=== PATIENT | male | born 1975 | race Caucasian/White ===

== ENCOUNTER 2020-08-09 18:48 | Emergency (ER) | payer MEDICARE ==
[~2020-08-09] VITALS: Ht 180.3 cm; Wt 112.6 kg
[2020-08-09 20:10] VITALS: BP 152/101
[2020-08-09] MEDS ORDERED: IV NORMAL SALINE 1000ML BAG 1,000 ML IV ONE (21:15)
[2020-08-09] MEDS ORDERED: ACETAMINOPHEN 500 MG TABLET PO ONE (21:15)
[2020-08-09 21:23] LABS: BILIRUBIN,URINE NEGATIVE (NEG); CLARITY,URINE CLEAR; COLOR,URINE YELLOW; NITRITE,URINE NEGATIVE (NEG); PH,URINE 5.5 (<5.0-8.0); PROTEIN,URINE NEGATIVE (NEG-TRACE)
[2020-08-09 21:35] LABS: SQUAMOUS EPITHELIAL CELL,UR FEW /LPF
[2020-08-09 21:36] LABS: BACTERIA,URINE 0 /HPF (0-FEW); RBC,URINE 0 /HPF (0-2)
--- NOTE | 2020-08-09 21:50 | PHYS DOC ---
Past Medical History Past Medical History: Anxiety, Bipolar, Cancer, GERD, Hypertension, Other Additional Past Medical Histor: congenital heart defect, "leaky" heart valve, SKIN CA (MATTHEW WELDON PROTECTIVE SIGNAL OPERATOR) Past Surgical History: Other Additional Past Surgical Histo: SKIN CA REMOVAL ABOVE LEFT EAR (MATTHEW WELDON PROTECTIVE SIGNAL OPERATOR) Smoking Status: Current Some Day Smoker Alcohol Use: Rarely Drug Use: None (MATTHEW WELDON PROTECTIVE SIGNAL OPERATOR) General Adult EDM: Chief Complaint: FEVER HPI: HPI: Patient is a 45 year old male who presents with 2 days of headache, fatigue, chills, fever and loss of taste. Patient states that he is very anxious and worried and he has not taken his night lisinopril and that is why his blood pressure is high. He states every time the blood pressure machine goes off he gets very anxious. He denies recent travel or being in groups but does live with other people in the house but states that they do not have any symptoms. He rates his headache at a 5 out of 10. He states he also has a lack of appetite. Patient's temperature is 102.4 in the ED. Patient denies shortness of breath, chest pain, dizziness, syncope, vision changes, numbness or tingling, abdominal pain, nausea, vomiting, diarrhea, constipation, focal weakness. Patient has a history of anxiety, bipolar, GERD, congenital leaky heart valve, skin cancer, hypertension. (MATTHEW WELDON PROTECTIVE SIGNAL OPERATOR) Review of Systems: Review of Systems: Constitutional: Positive for fever or chills. Positive for fatigue. [] Eyes: Denies change in visual acuity. [] HENT: Denies nasal congestion or sore throat. Positive for loss of taste. [] Respiratory: Denies cough or shortness of breath. [] Cardiovascular: Denies chest pain or edema. [] GI: Denies abdominal pain, nausea, vomiting, bloody stools or diarrhea. Positive for lack of appetite. [] : Denies dysuria. [] Musculoskeletal: Denies back pain or joint pain. [] Integument: Denies rash. [] Neurologic: Positive for headache, denies focal weakness or sensory changes. [] Endocrine: Denies polyuria or polydipsia. [] Lymphatic: Denies swollen glands. [] Psychiatric: Denies depression. Positive for anxiety. [] (MATTHEW WELDON APRN) Heart Score: Risk Factors: Risk Factors: DM, Current or recent (<one month) smoker, HTN, HLP, family history of CAD, obesity. Risk Scores: Score 0 - 3: 2.5% MACE over next 6 weeks - Discharge Home Score 4 - 6: 20.3% MACE over next 6 weeks - Admit for Clinical Observation Score 7 - 10: 72.7% MACE over next 6 weeks - Early Invasive Strategies (MATTHEW WELDON APRN) Current Medications: Current Medications Medications (Trade) Dose Ordered Sig/Errol Start Time Stop Time Status Last Admin Dose Admin Acetaminophen (Tylenol) 1,000 mg 1X ONCE 08/09/20 21:15 08/09/20 21:16 DC Sodium Chloride 1,000 ml @ 1,000 mls/hr 1X ONCE 08/09/20 21:15 08/09/20 22:14 (MATTHEW WELDON APRN) Allergies: Allergies: Allergies Coded Allergies Type Severity Reaction Last Updated Verified No Known Drug Allergies 02/03/14 No (MATTHEW WELDON APRN) Physical Exam: PE: Constitutional: Well developed, well nourished, no acute distress, non-toxic appearance. Febrile. [] HENT: Normocephalic, atraumatic, bilateral external ears normal, oropharynx moist, no oral exudates, nose normal. [] Eyes: PERRLA, EOMI, conjunctiva normal, no discharge. [] Neck: Normal range of motion, no tenderness, supple, no stridor. [] Cardiovascular:Heart rate regular rhythm, no murmur [] Lungs & Thorax: Bilateral breath sounds clear to auscultation [] Abdomen: Bowel sounds normal, soft, no tenderness, no masses, no pulsatile masses. [] Skin: Warm, dry, no erythema, no rash. [] Back: No tenderness, no CVA tenderness. [] Extremities: No tenderness, no cyanosis, no clubbing, ROM intact, no edema. [] Neurologic: Alert and oriented X 3, normal motor function, normal sensory function, no focal deficits noted. [] Psychologic: Affect normal, judgement normal, mood normal. [] (MATTHEW WELDON APRN) Current Patient Data: Labs: Laboratory Tests Test 08/09/20 20:05 Urine Collection Type Unknown Urine Color Yellow Urine Clarity Clear Urine pH 5.5 (<5.0-8.0) Urine Specific Risco 1.025 (1.000-1.030) Urine Protein Negative mg/dL (NEG-TRACE) Urine Glucose (UA) Negative mg/dL (NEG) Urine Ketones (Stick) Trace mg/dL (NEG) Urine Blood Negative (NEG) Urine Nitrite Negative (NEG) Urine Bilirubin Negative (NEG) Urine Urobilinogen Dipstick 1.0 mg/dL (0.2 mg/dL) Urine Leukocyte Esterase Negative (NEG) Urine RBC 0 /HPF (0-2) Urine WBC 1-4 /HPF (0-4) Urine Squamous Epithelial Cells Few /LPF Urine Bacteria 0 /HPF (0-FEW) Urine Mucus Marked /LPF Vital Signs: Vital Signs Date Time Temp Pulse Resp B/P (MAP) Pulse Ox O2 Delivery O2 Flow Rate FiO2 08/09/20 20:10 102.4 88 16 152/101 (118) 98 Room Air 102.4 (MATTHEW WELDON APRN) EKG: EKG: [] (MATTHEW WELDON APRN) Radiology/Procedures: Radiology/Procedures: [] Impression: [facility] [address] [place], [place] [id number] IMAGING REPORT Signed PATIENT: MARCELO MCINTOSH MACCOUNT: [id number] : 1975 LOCATION: ER AGE: 45 SEX: M EXAM STATUS: REG ER ORD. PHYSICIAN: MATTHEW WELDON APRN REASON: FEVER 21 PROCEDURE: PORTABLE CHEST 1V PORTABLE CHEST 1V History: Reason: FEVER 21 / Spl. Instructions: / History: Comparison: None. Findings: No consolidation or pleural effusion. Normal heart size. No pneumothorax. Impression: 1. No acute cardiopulmonary process. Electronically signed by: King Ferreira DO (08/09/2020 11:01 PM) [facility] DICTATED and SIGNED BY: KING FERREIRA DO DATE: 08/09/20 9704 (MATTHEW WELDON APRN) Course & Med Decision Making: Course & Med Decision Making Pertinent Labs and Imaging studies reviewed. (See chart for details) COVID-19 CRITERIA: The patient was evaluated during the global COVID-19 pandemic, and that diagnosis was suspected/considered upon their initial p resentation. Their evaluation, treatment and testing was consistent with current guidelines for patients who present with complaints or symptoms that may be related to COVID-19. See HPI. Patient was given Tylenol in the emergency room. He was also given Valium 2 mg to help with his anxiety. He states that is what he usually takes at home if he has anxiety. Speaks in full complete sentences. Alert and oriented x4. Ambulatory with a steady gait. Skin pink warm and dry. Patient is also tested for COVID in the ED. Patient is educated on quarantining after discharge. [] (MATTHEW WELDON APRN) Course & Med Decision Making I have reviewed the PA/INCIDENT COORDINATOR's note and Plan of Care. I was available for consu ltation as needed during the patient's visit in the emergency department. I agree with the clinical impression, plans and disposition. (NESSA JOSEPH MD) Dragon Disclaimer: Jhon Disclaimer: This electronic medical record was generated, in whole or in part, using a voice recognition dictation system. (MATTHEW WELDON APRN) Departure Departure Impression: Primary Impression: Person under investigation for COVID-19 Additional Impressions: Fever Qualified Codes: R50.9 - Fever, unspecified Headache Qualified Codes: R51 - Headache Disposition: 01 HOME, SELF-CARE Condition: STABLE Referrals: NO PCP (PCP) Patient Instructions: Fever, Adult Additional Instructions: Take Tylenol or ibuprofen for your pain and fever. Drink plenty of fluids. Rest as much as possible. Quarantine for the next 14 days. You have been tested for or diagnosed with COVID-19. It is an infection caused by a new type of coronavirus. COVID-19 will cause cold-like or mild flu symptoms in most. It can cause more severe symptoms like problems breathing in some. There is no treatment for COVID-19. The body will clear the infection over time. Self-care will help to ease discomfort. Steps to Take: Self-Care Rest as needed. Healthy habits may help you feel better. Steps include: Choose healthy foods including fruits and vegetables. Drink water throughout the day. Get plenty of sleep each night. If you smoke, try to quit. It may ease breathing. Avoid alcohol. Keep Others Healthy The virus can spread to others. Droplets are released every time you sneeze or cough. The droplets can get into the mouth, nose, or eyes of people near you and lead to infection. To lower the chances of spreading COVID-19 to others: Stay at home until your doctor has said it is safe to leave. If you tested positive this will mean staying isolated until both of the following are true: At least 7 days have passed since the start of illness. You are free of fever for at least 72 hours without the use of medicine. During this time: - Avoid public areas, events, or transportation. Do not return to work or school until your doctor has said it is safe to do so. - Call ahead if you need to go to a medical center. Let them know you may have COVID-19. It will help them guide you where to go. They may also ask you to wear a facemask when you come to the office. - If you call for emergency medical services, let them know you may have COVID- 19. While at home: - Try to avoid close contact with others. Stay about 6 feet away. - If possible, spend most of your time in a separate room from others. - Use a face mask if you will be in close contact with others such as sharing a room or vehicle. - Have someone wipe down common surfaces in the home. Use household zinc plate grainer e very day on areas like doorknobs, counters, or sinks. - Cough or sneeze into a tissue. Throw the tissue away right after use. If a tissue is not available, cough or sneeze into your elbow. - Wash your hands often. Wash them after sneezing or coughing. Use soap and water and wash for at least 20 seconds. Alcohol based hand core cleaner can be used if soap and water is not available. - Do not prepare food for others. Avoid sharing personal items like forks, spoons, or toothbrushes. - Avoid close contact with pets while you are sick. There is no evidence of the virus passing to pets. This is a safety step until more is known about this virus. Isolation can be frustrating. Social interaction can help. Keep in touch with friends and family through phone and tech options. You can still interact with others in your home, just keep a safe distance of about 6 feet. Follow-up: Your doctors office will check in with you to see if there are any changes in your health. You may be asked to keep track of symptoms to share with them. They will also let you know when you are clear to be in public again. Problems to Look Out For: Contact your doctor if your recovery is not going as you expect. Get emergency care if you have problems such as: - Trouble breathing - Nonstop chest pain or pressure - Changes in awareness, confusion, or problems waking - Lips or face have bluish color - Worsening of symptoms If you think you have an emergency, call for emergency medical services right away. As taken from [facility] Justicifation of Admission Dx: Justifications for Admission: Justification of Admission Dx: N/A (MATTHEW WELDON APRN) MATTHEW WELDON APRN Aug 09, 2020 21:50 NESSA JOSEPH MD Aug 09, 2020 23:24
[2020-08-09] MEDS ORDERED: diazePAM 2 MG TABLET PO ONE (22:00)
[2020-08-09 22:31] LABS: BASO % 0 % (0-3); EOS % 0 % (0-3); HEMATOCRIT 45.2 % (39.0-53.0); HEMOGLOBIN 15.1 g/dL (13.0-17.5); LYMPH # 0.9 x10^3/uL (1.0-4.8); LYMPH % 15 % (24-48); MEAN CORPUSCULAR HEMOGLOBIN 29 pg (25-35); MEAN CORPUSCULAR HGB CONC 33 g/dL (31-37); MEAN CORPUSCULAR VOLUME 87 fL (79-100); MONO # 0.7 x10^3/uL (0.0-1.1); MONO % 12 % (0-9); NEUT # 4.3 x10^3/uL (1.8-7.7); NEUT % 72 % (31-73); PLATELET COUNT 188 x10^3/uL (140-400); RED CELL DISTRIBUTION WIDTH 13.2 % (11.5-14.5); WHITE BLOOD COUNT 5.9 x10^3/uL (4.0-11.0)
[2020-08-09 22:40] LABS: PROTHROMBIN TIME PATIENT 12.9 SEC (11.7-14.0)
[2020-08-09 22:50] LABS: CALCIUM 8.7 mg/dL (8.5-10.1); CREATININE 1.3 mg/dL (0.7-1.3); GFR 59.4; POTASSIUM 3.7 mmol/L (3.5-5.1)
[2020-08-09 22:54] LABS: ALBUMIN 3.7 g/dL (3.4-5.0); ALBUMIN/GLOBULIN RATIO 0.9 (1.0-1.7); TOTAL BILIRUBIN 0.5 mg/dL (0.2-1.0); TOTAL PROTEIN 7.6 g/dL (6.4-8.2)
--- NOTE | 2020-08-09 23:04 | RAD ---
PORTABLE CHEST 1V History: Reason: FEVER 21 / Spl. Instructions: / History: Comparison: None. Findings: No consolidation or pleural effusion. Normal heart size. No pneumothorax. Impression: 1. No acute cardiopulmonary process. Electronically signed by: King Ferreira DO (08/09/2020 11:01 PM) [facility]
== END 2020-08-10 00:05 | disposition home or self-care (01) ==
LOC: ER 18:48
DX: U07.1 COVID-19 (principal); R50.9 Fever, unspecified; R51 Headache; Z20.828 Contact with and (suspected) exposure to other viral communicable diseases; F31.9 Bipolar disorder, unspecified; K21.9 Gastro-esophageal reflux disease without esophagitis; I10 Essential (primary) hypertension; F41.9 Anxiety disorder, unspecified; Q24.9 Congenital malformation of heart, unspecified; F17.200 Nicotine dependence, unspecified, uncomplicated
CPT/HCPCS: 36415; 71045; 80053; 81001; 83605; 85025; 85610; 96360; 99284; C9803; J7030; U0003